=== PATIENT | male | born 1980 | race Caucasian/White ===

== ENCOUNTER 2022-02-26 11:21 | Day surgery (SDC) | payer OTHER ==
[~2022-02-26] VITALS: Ht 177.8 cm; Wt 81.3 kg
[~2022-02-26 11:21] MED LIST: SODIUM CHLORIDE 0.9% 1,000 ML IV ONE; SODIUM CHLORIDE 0.9% 1,000 ML ONE
[2022-02-26 11:41] LABS: COVID AG,FIA SOURCE NASOPHARYNGEAL
[2022-02-26] MEDS ORDERED: PROPOFOL 1% 20 ML VIAL IVP ONE (12:00)
== END 2022-02-26 16:05 | disposition home or self-care (01) ==
LOC: SURGERY 11:21
PROVIDERS: ATTEND Internal Medicine Gastroenterology
DX: D12.5 Benign neoplasm of sigmoid colon (principal); K64.8 Other hemorrhoids; J45.909 Unspecified asthma, uncomplicated; R13.10 Dysphagia, unspecified; R10.13 Epigastric pain; Z20.822 Contact with and (suspected) exposure to COVID-19; Z88.2 Allergy status to sulfonamides; Z79.899 Other long term (current) drug therapy
CPT/HCPCS: 45385; 43239; 87426; J2704; J7030; C9803; 88305